=== PATIENT | female | born 1960 | race African-American/Black ===

== ENCOUNTER 2016-07-22 19:08 | Emergency (ER) | payer OTHER ==
[2016-07-22] MEDS ORDERED: MOTRIN PO ONE (19:14)
--- NOTE | 2016-07-22 19:44 | PROVIDER DOCUMENTATION ---
HPI-General Adult - General Chief Complaint: Flu Symptoms Stated Complaint: FLU LIKE SX Time Seen by Provider: 07/22/16 19:12 Source: patient Allergies/Adverse Reactions: Patient Allergies Allergy/AdvReac Type Severity Reaction Status Date / Time No Known Allergies Allergy Verified 07/22/16 19:36 Home Medications: Home Medication List Medication Instructions Recorded Confirmed Last Taken Type Amlodipine [Norvasc] 5 mg PO DAILY 09/19/13 07/22/16 06/03/14 History Losartan/Hctz [Hyzaar 50/12.5 mg] 1 each PO DAILY 09/19/13 07/22/16 06/03/14 History SIMVAstatin [Zocor] 40 mg PO QHS 09/19/13 07/22/16 06/03/14 History Potassium Chloride E.r. [Klor-Con] 20 meq PO DAILY #10 tablet 10/24/14 07/22/16 Unknown Rx Amoxicillin 500 mg PO BID #14 tablet 07/22/16 Unknown Rx Cetirizine [Zyrtec] 10 mg PO DAILY #20 tablet 07/22/16 Unknown Rx Methylprednisolone [Medrol Dosepak] 4 mg PO DIRECTED #1 package 07/22/16 Unknown Rx - History of Present Illness -Gen Adult Nature of Presenting Problems: Pt. is 56 yof that presents with c/o sinus congestion, cough, nasal drainage. Pt. reports she didn't know she had a fever until she came in to the ED. Pt. reports mild body aches. Pt. denies any other symptoms at time of exam. Location of Pain/Injury: reports: head, generalized. denies: face, mouth, neck , chest, upper extremity, hand(s), abdomen, back, pelvis, genitalia, lower extremity, feet, upper body, lower body Pain Radiation: reports: no radiation Quality of Pain: reports: aching. denies: burning, cramping, dull, fullness, indigestion, pressure, sharp, stabbing, tearing, throbbing, tightness Severity: reports: mild. denies: moderate, severe Onset/Duration: reports: gradual, 2 days ago Timing: reports: still present. denies: improving, gone now, resolved prior to arrival, intermittent, constant, changing over time, getting worse Context/Activities at Onset: reports: none. denies: recent emotional stress, recent physical stress, recent trauma history, possible bad food, cold exposure , out of country travel Modifying Factors: improves with: nothing Associated Symptoms: reports: cough, EENT symptoms, fatigue, fever/chills, headaches, muscle aches, sinus congestion/drainage. denies: anxiety, arm pain, back/neck pain, chest pain, constipation, diaphoresis, diarrhea, dizziness, genitourinary problems, heartburn, joint pain, loss of appetite, malaise, nausea , rash, seizure, shortness of breath, sensory/motor loss, pain with inspiration , swelling/mass in abdomen, syncope, vomiting, weakness, trouble walking Similar Symptoms Previously?: Yes Recently seen or treated by another doctor?: No Review of Systems - Adult - REVIEW OF SYSTEMS - ADULT Constitutional: reports: see HPI, fever. denies: chills, fatique Eyes: reports: see HPI. denies: discharge, blurred vision, double vision, eye pain Ears, Nose, Mouth & Throat: reports: see HPI, sinus problem. denies: ear discharge, ear pain, hearing loss, nose pain, loose teeth, mouth/dental pain, throat pain, throat swelling Cardiovascular: reports: see HPI. denies: chest pain, irregular heart rate, orthopnea, palpitations, syncope Respiratory: reports: see HPI, cough. denies: dyspnea on exertion, pleurisy, shortness of breath, wheezing Gastrointestinal: reports: see HPI. denies: abdominal pain, hematemesis, diarrhea, difficulty swallowing, frequent heartburn, nausea, vomiting Genitourinary: reports: see HPI. denies: dysuria, discharge, flank pain, hematuria, hesitency, incontinence, urgency Musculoskeletal: reports: see HPI, muscle aches. denies: bone pain, back pain, joint pain, joint swelling, neck pain Integumentary: reports: see HPI. denies: hives, hair loss, itching, rash, skin thickening Neurological: reports: see HPI, headache/migraines. denies: ataxia, dizziness/ vertigo, numbness, paresthesia, seizure, slurred speech, tremors Psychiatric: reports: see HPI. denies: anxiety, depression, emotional problems , insomnia, panic attacks, suicidal thoughts Past History - Adult - PAST MEDICAL HISTORY-ADULT Review of Records: reports: Old Records Reviewed, Nursing Assessment Review, Medications Reviewed, Social history reviewed & non-contributory. Cardiovascular: reports: HTN, hyperlipidemia - PRIOR SURGERIES/PROCEDURES Surgical/Procedure History: reports: hysterectomy - IMMUNIZATION STATUS Childhood Immunizations: See Nurse Assessment Flu Vaccine: See Nurse Assessment - FAMILY HISTORY Family History: reviewed, not pertinent - SOCIAL HISTORY Smoking: non-smoker Physical Exam-General - PHYSICAL EXAM-ADULT Initial Vital Signs Reviewed: Yes - CONSTITUTIONAL General Appearance: alert, mild distress, thin. negative: obese, anxious, lethargic, slow to respond, obtunded, combative - EYES Eyes: PERRL/EOMI, pink conjunctivae. negative: conjuctival exudate, scleral icterus, subconjunctival hemorrhage - HEAD, EARS, NOSE, MOUTH & THROAT HENMT: normocephalic/atraumatic, moist mucous membranes, normal ENT inspection. negative: angioedema, frontal tenderness, maxillary tenderness - NECK Neck: non-tender, full range of motion, supple, normal inspection. negative: lymphadenopathy, trachial deviation, thyromegaly - RESPIRATORY Respiratory: lungs clear, normal breath sounds. negative: crackles, rales, rhonchi, stridor, wheezing - CARDIOVASCULAR Cardiovascular: normal peripheral pulses, regular rate, rhythm, no edema, no JVD , no murmur. negative: extra beats, friction rub, irregularly irregular - CHEST (BREASTS) Chest/Breast: deferred - GASTROINTESTINAL (ABDOMEN) Abdominal Exam: normal bowel sounds, non tender, soft. negative: distended, guarding, rigid, rebound, tenderness, hernia, mass - GENITOURINARY Female Genitalia/Pelvic Exam: deferred Rectal Exam: deferred Hemoccult Exam: deferred - LYMPHATIC Lymphatic: no adenopathy. negative: axilla node tender, cervical node tenderness - MUSCULOSKELETAL Back Exam: normal inspection, no CVA tenderness, no vertebral tenderness. negative: ecchymosis, swelling, vertebral tenderness Extremity: normal range of motion, non-tender, normal gait, normal inspection. negative: deformity, erythema, inflammation, swelling, tenderness Peripheral Pulses: radial (R): 2+, radial (L): 2+ - SKIN Integumentary: normal color, normal turgor, warm/dry. negative: cyanosis, diaphoresis, ecchymosis, erythema, jaundice, mottled, pallor, petechiae, purpura , rash, swelling, tenderness - NEUROLOGIC Neurologic: grossly normal, no motor/sensory deficits. negative: abnormal gait , aphasia, facial droop, focal weakness, motor weakness, sensory deficit - PSYCHIATRIC Psych/Mental Status: normal mood/affect, normal thought content, normal thought process, oriented x 3. negative: anxious, paranoid, tearful Progress - PLAN OF CARE/RESULTS Progress/Plan/Lab Results: Discussed results and plan of care with patient. Patient agrees with plan and verbalizes understanding. Vital Signs Temp Pulse Resp BP Pulse Ox 07/22/16 19:11 100.7 F H 102 H 18 154/94 97 No Known Allergies Allergy (Verified 07/22/16 19:36) Amlodipine [Norvasc] 5 mg PO DAILY 09/19/13 Losartan/Hctz [Hyzaar 50/12.5 mg] 1 each PO DAILY 09/19/13 SIMVAstatin [Zocor] 40 mg PO QHS 09/19/13 Potassium Chloride E.r. [Klor-Con] 20 meq PO DAILY #10 tablet 10/24/14 Laboratory 07/22/16 19:14 Influenza A (Rapid) NEGATIVE Influenza B (Rapid) NEGATIVE Orders Category Date Time Status Flu [INFLUENZA SCREEN PL] Stat Lab 07/22/16 19:14 Completed Amoxicillin [Amoxil] Med 07/22/16 19:47 Discontinued 500 mg PO NOW ONE Cetirizine [Zyrtec] Med 07/22/16 19:47 Discontinued 10 mg PO NOW ONE Ibuprofen [Motrin] Med 07/22/16 19:14 Discontinued 600 mg PO NOW ONE Methylprednisolone Acetate [Depo-Medrol] Med 07/22/16 19:47 Discontinued 40 mg IM NOW ONE Laboratory Tests 07/22/16 19:14 Influenza A (Rapid) NEGATIVE Influenza B (Rapid) NEGATIVE Departure - Departure Time of Disposition Order: 19:48 DIAGNOSIS: Sinusitis Qualifiers: Sinusitis location: frontal Chronicity: acute Recurrence: not specified as recurrent Qualified Code(s): J01.10 - Acute frontal sinusitis, unspecified Disposition: HOME 01 Certified Medical Emergency: Emergent Condition: Stable Additional Instructions: Follow up wit primary care physician Take medications as directed Alternate tylenol and motrin every 4 hours as directed by packaging for fever Return to ED for any concerns or worsening of symptoms ED Follow Up Instructions: You have been treated by a care provider in the Emergency Department. These instructions are being provided to you so you can have an understanding of how to care for yourself upon discharge. Upon discharge from the Emergency Department, you are responsible for making arrangements for follow-up care by a physician of your choice. Take all prescribed medications as directed. Return to the Emergency Department immediately for any new or worsening symptoms. You may call the Physician Referral phone number at [phone] to obtain a list of Physicians who are taking new patients. Prescriptions: Amoxicillin 500 mg PO BID #14 tablet Methylprednisolone [Medrol Dosepak] 4 mg PO DIRECTED #1 package Cetirizine [Zyrtec] 10 mg PO DAILY #20 tablet Attestation - Physician/ MARLY Attestation Patient care was provided by Advanced Practice Provider:: Yes Advanced Practice Provider:: Bernardo Sepulveda Advanced Practice Provider documentation review:: The Mid-level provider documentation, treatment plan and medical decision making was reviewed by the physician who agrees with all treatment and medical decision making by the MLP.
[2016-07-22] MEDS ORDERED: DEPO-MEDROL IM ONE (19:47)
[2016-07-22] MEDS ORDERED: ZYRTEC PO ONE (19:47)
[2016-07-22] MEDS ORDERED: AMOXIL PO ONE (19:47)
[2016-07-22 20:03] VITALS: BP 147/96
== END 2016-07-22 20:03 | disposition home or self-care (01) ==
LOC: P.ED 19:08
DX: J01.10 Acute frontal sinusitis, unspecified (principal); R09.81 Nasal congestion; R05 Cough; R53.83 Other fatigue; R50.9 Fever, unspecified; R51 Headache; M79.1 Myalgia; I10 Essential (primary) hypertension; E78.5 Hyperlipidemia, unspecified; Z79.899 Other long term (current) drug therapy
CPT/HCPCS: 87804; 96372; J1030